=== PATIENT | female | born 1970 | race African-American/Black ===

== ENCOUNTER 2017-01-31 13:39 | Emergency (ER) | payer MEDICAID ==
[~2017-01-31] VITALS: Ht 157.5 cm; Wt 71.7 kg
[~2017-01-31 13:39] MED LIST: ACYCLOVIR200 MG ORAL; BENADRYL25 MG ORAL; IBUPROFEN600 MG ORAL; KENALOG 0.1% CR15 GM APPLIC; NORCO1 EA ORAL; PERCOCET 5-3251 EACH ORAL; PREDNISONE20 MG ORAL; TAMIFLU75 MG ORAL; VALACYCLOVIR500 MG ORAL
[2017-01-31] MEDS ORDERED: NKM (13:57)
[2017-01-31 14:00] VITALS: BP 128/83
[2017-01-31] MEDS ORDERED: PredniSONE 20mg tab ORAL ONE (14:15)
[2017-01-31] MEDS ORDERED: BENADRYL25 MG ORAL (14:16)
[2017-01-31] MEDS ORDERED: PREDNISONE20 MG ORAL (14:16)
[2017-01-31] MEDS ORDERED: KENALOG 0.1% LO60 ML APPLIC (14:16)
[2017-01-31 14:30] VITALS: BP 128/83
--- NOTE | 2017-01-31 14:58 | Emergency Room Report ---
History of Present Illness General Chief Complaint: Allergic Reaction Source: Patient Present Illness [facility] The patient is a 46-year-old female presenting for possible allergic reaction. The patient states that she used a haircoloring product yesterday and noticed an itching and burning sensation to the scalp. She admits to a previous history of allergic reaction to a similar product. She states that she thoroughly washed the hair and scalp multiple times but the symptoms persisted. She denies a rash or itching anywhere else on the body. She denies shortness of breath. She denies other symptoms including fever, chills, nausea, vomiting , headache, dizziness Allergies: Coded Allergies: PENICILLINS (Verified Allergy, Severe, Anaphylaxis, 01/02/13) Patient History Past Medical History: see triage record Pertinent Family History: none Last Menstrual Period: 6-6 Now: No Reviewed Nursing Documentation: PMH: Agreed, PSxH: Agreed Nursing Documentation-PMH Past Medical History: No History, Except For Hx Asthma: Yes Hx Cancer: No - Shingles Review of Systems All Other Systems: negative except mentioned in HPI Physical Exam Vital Signs Date Time Temp Pulse Resp B/P Pulse Ox O2 Delivery O2 Flow Rate FiO2 01/31/17 13:50 98.4 109 18 128/83 98 Room Air Sp02 EP Interpretation: reviewed, normal General Appearance: no apparent distress, alert, GCS 15, non-toxic Head: normocephalic, atraumatic Eyes: bilateral eye PERRL, bilateral eye normal inspection ENT: hearing grossly normal, normal pharynx, no angioedema, normal voice Neck: full range of motion, supple/symm/no masses Respiratory: chest non-tender, lungs clear, normal breath sounds, no wheezing, speaking full sentences Cardiovascular #1: normal inspection, no edema Gastrointestinal: normal bowel sounds, non tender, soft, non-distended, no guarding, no rebound Musculoskeletal: back normal, gait/station normal, normal range of motion, non- tender Neurologic: alert, oriented x3, responsive, motor strength/tone normal, sensory intact, speech normal Psychiatric: judgement/insight normal, memory normal, mood/affect normal, no suicidal/homicidal ideation Skin: normal color, no rash, warm/dry, well hydrated, normal turgor Lymphatic: no adenopathy Medical Decision Making PA Attestation Dr. dickens is my supervising physician. Patient management was discussed with my supervising physician Diagnostic Impression: Primary Impression: Contact dermatitis Qualified Codes: L25.9 - Unspecified contact dermatitis, unspecified cause ER Course The patient is a 46-year-old female presenting for possible allergic reaction Ddx considered include but not limited to insect bite, contact dermatitis, eczema, cellulitis, among others PE: afebrile. NAD Scalp: No erythema or edema. No excoriation brantley. Warm and dry Otherwise skin of the body is unremarkable. No hives or wheals. Lungs are clear to auscultation bilaterally Oropharynx is clear and patent The patient is given prednisone in the emergency department and will be discharged home with a prescription for prednisone, Benadryl, and triamcinolone. She will not use that product anymore and will followup with primary doctor. ER precautions given Last Vital Signs Date Time Temp Pulse Resp B/P Pulse Ox O2 Delivery O2 Flow Rate FiO2 01/31/17 14:30 98.4 18 128/83 98 Room Air 01/31/17 13:50 109 Status: improved Disposition: HOME, SELF-CARE Condition: Improved Scripts Prednisone* (PREDNISONE*) 20 Mg Tablet 40 MG ORAL DAILY, #10 TAB Prov: LIZ MAYORGA.A. 01/31/17 Triamcinolone Acet (Triamcinolone Acetonide) 60 Ml Lotion 1 APPLIC APPLIC TID, #60 ML Prov: LIZ MAYORGA P.A. 01/31/17 Diphenhydramine Hcl* (BENADRYL*) 25 Mg Capsule 25 MG ORAL Q6H Y for Itching, #15 CAP Prov: LIZ MAYORGA.A. 01/31/17 [facility]errals[facility] (PCP) Patient Instructions: Pruritus Additional Instructions: I discussed my findings with the patient. All questions and concerns have been answered. Treatment and medication compliance have been addressed. I advised the patient that they need to follow up with PMD in 3-5 days. Return to ED if symptoms worsen, new symptoms arise, or if needed for any reason. Patient verbalized understanding of discharge instructions. LIZ MAYORGA Jan 31, 2017 14:58
== END 2017-01-31 14:33 | disposition home or self-care (01) ==
LOC: EMR 14:12
DX: L25.9 Unspecified contact dermatitis, unspecified cause (principal); J45.909 Unspecified asthma, uncomplicated; Z88.0 Allergy status to penicillin
CPT/HCPCS: 99284

== ENCOUNTER 2017-09-05 13:42 | Emergency (ER) | payer MEDICAID ==
[~2017-09-05] VITALS: Ht 157.5 cm; Wt 67.6 kg
[~2017-09-05 13:42] MED LIST changes: +ACYCLOVIR MISC; +KENALOG 0.1% LO60 ML APPLIC; +NKM
[2017-09-05 14:15] VITALS: BP 0/0
[2017-09-05] MEDS ORDERED: BENADRYL ITCH28.3 G1 TP (14:23)
[2017-09-05] MEDS ORDERED: BENADRYL25 MG ORAL (14:23)
[2017-09-05] MEDS ORDERED: PREDNISONE20 MG ORAL (14:23)
--- NOTE | 2017-09-05 16:43 | Emergency Room Report ---
History of Present Illness General Chief Complaint: Female Urogenital Problems Source: Patient Present Illness HPI Patient here being seen with her daughter who is here for a different complaint Patient complains of vaginal itching on the outside reports that she is a new soap It was lavender fragrant and symmetric using that she felt increased itching denies any redness or discharge denies any vaginal discomfort denies any dysuria frequency Allergies: Coded Allergies: PENICILLINS (Verified Allergy, Severe, Anaphylaxis, 01/02/13) Patient History Past Medical History: see triage record Pertinent Family History: none Reviewed Nursing Documentation: PMH: Agreed, PSxH: Agreed Nursing Documentation-PM Past Medical History: No History, Except For Hx Asthma: Yes Hx Cancer: No - Shingles Review of Systems All Other Systems: negative except mentioned in HPI Physical Exam Vital Signs Date Time Temp Pulse Resp B/P (MAP) Pulse Ox O2 Delivery O2 Flow Rate FiO2 09/05/17 14:07 98.1 71 16 126/75 97 Room Air Sp02 EP Interpretation: reviewed, normal General Appearance: well appearing, no apparent distress Head: normocephalic, atraumatic Eyes: bilateral eye PERRL, bilateral eye EOMI ENT: hearing grossly normal, normal pharynx Neck: supple Respiratory: lungs clear Cardiovascular #1: regular rate, rhythm Gastrointestinal: non tender, soft Genitourinary: no CVA tenderness Musculoskeletal: normal inspection Neurologic: alert, oriented x3, responsive Skin: normal inspection Lymphatic: no adenopathy Medical Decision Making Diagnostic Impression: Primary Impression: contact dermatitis ER Course Vaginal examination was not performed Patient clinically reports no obvious erythema no vaginal discharge she mainly complains of the itching sensation She will be treated conservatively clinically and requires close followup Last Vital Signs Date Time Temp Pulse Resp B/P (MAP) Pulse Ox O2 Delivery O2 Flow Rate FiO2 09/05/17 14:15 0/0 09/05/17 14:15 98.1 16 97 Room Air 09/05/17 14:07 71 Status: unchanged Disposition: HOME, SELF-CARE Condition: Stable Scripts Diphenhydramine Hcl* (BENADRYL*) 25 Mg Capsule 25 MG ORAL Q6H Y for Itching, #20 CAP Prov: PEÑA HAINES D.O. 09/05/17 Prednisone* (PREDNISONE*) 20 Mg Tablet 20 MG ORAL BID, #8 TAB Prov: PEÑA HAINES D.O. 09/05/17 Diphenhydramine Hcl/Zinc Acet (BENADRYL ITCH STOPPING CRM) 28.3 Gm Cream..g. 5 GM TP BID for 5 Days, GM Prov: PEÑA HAINES D.O. 09/05/17 Referrals: [facility] ([facility]P) Patient Instructions: Contact Dermatitis, [id number] Additional Instructions: Patient is provided with the discharge instructions notified to follow up with primary doctor in the next 2-3 days otherwise return to the er with any worsening symptoms. Please note that this report is being documented using [employer] technology. This can lead to erroneous entry secondary to incorrect interpretation by the dictating instrument. PEÑA HAINES D.O. Sep 05, 2017 16:43
== END 2017-09-05 15:19 | disposition home or self-care (01) ==
LOC: EMR 14:55
DX: L25.9 Unspecified contact dermatitis, unspecified cause (principal); J45.909 Unspecified asthma, uncomplicated; Z88.0 Allergy status to penicillin
CPT/HCPCS: 99283

== ENCOUNTER 2018-01-06 15:44 | Emergency (ER) | payer SELFPAY ==
[~2018-01-06] VITALS: Ht 157.5 cm; Wt 65.8 kg
[~2018-01-06 15:44] MED LIST changes: +BENADRYL ITCH28.3 G1 TP
[2018-01-06] MEDS ORDERED: Acetaminophen 500mg (ES) tab ORAL ONE (16:15)
[2018-01-06] MEDS ORDERED: TYLENOL EXTRA500 MG ORAL (16:18)
--- NOTE | 2018-01-06 16:18 | Emergency Room Report ---
History of Present Illness General Chief Complaint: General Complaint Source: Patient Present Illness HPI 47-year-old female patient presents ER complaining of right heel pain for the past 2 weeks. Patient denies acute injury. Patient reports that pain is slowly been increasing during that time, states pain is worse in the morning. Denies wearing orthotics. Denies pain radiating of leg. Reports walking with limp. Denies other acute symptoms. Denies fever, chest pain, shortness of breath. patient denies stepping on a nail. Allergies: Coded Allergies: PENICILLINS (Verified Allergy, Severe, Anaphylaxis, 01/02/13) Patient History Past Medical History: see triage record Last Menstrual Period: 11/18/2017 Reviewed Nursing Documentation: PMH: Agreed; PSxH: Agreed Nursing Documentation-PMH Past Medical History: No History, Except For Hx Asthma: Yes Hx Cancer: No - Shingles Review of Systems All Other Systems: negative except mentioned in HPI Physical Exam Vital Signs Date Time Temp Pulse Resp B/P (MAP) Pulse Ox O2 Delivery O2 Flow Rate FiO2 01/06/18 15:55 98.4 80 18 124/83 98 Room Air 98.4 Sp02 EP Interpretation: reviewed, normal General Appearance: well appearing, no apparent distress, alert, GCS 15, non- toxic Head: normocephalic, atraumatic Eyes: bilateral eye normal inspection, bilateral eye PERRL ENT: hearing grossly normal, normal pharynx, no angioedema, normal voice, uvula midline, moist mucus membranes Respiratory: lungs clear, normal breath sounds, no rhonchi, no respiratory distress, no accessory muscle use, no wheezing, speaking full sentences Cardiovascular #1: regular rate, rhythm, no edema Cardiovascular #2: 2+ dorsalis pedis (R), 2+ dorsalis pedis (L) Musculoskeletal: back normal, digits/nails normal, normal range of motion, other - NVI, tender - plantar aspect of right heel, no bruising, no erythema, no puncture wound Neurologic: alert, oriented x3, responsive, motor strength/tone normal, sensory intact Skin: no rash Medical Decision Making PA Attestation Dr. Kerr is my supervising Physician whom patient management has been discussed with. Diagnostic Impression: Primary Impression: Heel pain ER Course Pt. presents to the ED c/o and right heel pain Ddx considered but are not limited to fracture, sprain, strain, contusion, dislocation, plantar fasciitis, heel spurs. Vital signs: are WNL, pt. is afebrile Ordered X-ray and pain medication. ER COURSE Provided with pain medication. An X-ray of the right foot was ordered, results show no acute fracture, no heel spurs, per the preliminary reading. informed patient possible plantar fasciitis, perform stretching exercises, take NSAIDs for pain, her shoes with better arch support. Reports pain symptoms improved. postop shoe was applied to right foot and was checked afterwards by me showing good alignment and support with distal neurovascular functioning intact. Patient reports walking with a limp, we will provide crutches. Patient instructed on RICE method: rest, ice, compression, elevation. Patient instructed to WBAT. Followup with primary care provider, request referral to ortho or podiatry as needed Discuss referral to ortho/pain management/PT as needed. Discuss further imaging with MRI/CT as needed. DISCHARGE: -Rx provided for Tylenol for pain symptoms. At this time pt. is stable for d/c to home. Patient is resting comfortably, in no acute distress, nontoxic appearing, talking without difficulty. Will provide printed patient care instructions, and any necessary prescriptions. Patient instructed to follow with primary care provider in 3 - 5 days and to request further orthopedic follow-up. Care plan and follow up instructions have been discussed with the patient prior to discharge. Take medications as directed. Patient questions asked and answered. Patient reports understanding and agreement to treatment plan. ER precautions given, patient instructed to return to ER immediately for any new or worsening of symptoms. - Please note that this Emergency Department Report was dictated using [employer] condition[employer] supervisor technology software, occasionally this can lead to erroneous entry secondary to interpretation by the dictation equipment. Other X-Ray Diagnostic Results Other X-Ray Diagnostic Results : X-Ray ordered: right foot # of Views/Limited Vs Complete: 3 View Indication: Pain EP Interpretation: Yes PA Xray: Interpretation reviewed, by supervising MD, and agrees with findings. Interpretation: no dislocation, no soft tissue swelling, no fractures Impression: No acute disease PEARL Scribe Text Junior Ball PA-C Last Vital Signs Date Time Temp Pulse Resp B/P (MAP) Pulse Ox O2 Delivery O2 Flow Rate FiO2 01/06/18 15:55 98.4 80 18 124/83 98 Room Air 98.4 Disposition: HOME, SELF-CARE Condition: Stable Scripts Acetaminophen* (TYLENOL EXTRA STRENGTH*) 500 Mg Tablet 500 MG ORAL Q8H PRN for Prn Headache/Temp > 101, #30 TAB 0 Refills Prov: Dillon Ball 01/06/18 Patient Instructions: Plantar Fasciitis Additional Instructions: Patient instructed to follow up with primary care provider and discuss further referral to orthopedics. Discuss referral to podiatry at that time. Perform stretching exercises, get orthotics for her shoes. Patient instructed on RICE method: rest, ice, compression, elevation. Patient instructed to WBAT. Take medications as directed. Patient questions asked and answered. ER precautions given, patient instructed to return to ER immediately for any new or worsening of symptoms. Dillon Ball January 06, 2018 16:18
[2018-01-06 17:35] VITALS: BP 111/71
--- NOTE | 2018-01-06 18:08 | Diagnostic Imaging Report ---
EXAM: XR Right Foot Complete, 3 or More Views CLINICAL HISTORY: PAIN TECHNIQUE: Frontal, lateral and oblique views of the right foot. COMPARISON: No relevant prior studies available. FINDINGS: Bones/joints: No acute displaced fracture or dislocation. Soft tissues: Unremarkable. No radiopaque foreign body. IMPRESSION: No acute displaced fracture or dislocation.
== END 2018-01-06 17:38 | disposition home or self-care (01) ==
LOC: EMR 16:20
DX: M79.671 Pain in right foot (principal); J45.909 Unspecified asthma, uncomplicated
CPT/HCPCS: 99283

== ENCOUNTER 2019-05-02 16:54 | Emergency (ER) | payer MEDICAID ==
[~2019-05-02] VITALS: Ht 157.5 cm; Wt 65.8 kg
[~2019-05-02 16:54] MED LIST changes: +TYLENOL EXTRA500 MG ORAL
[2019-05-02 17:00] VITALS: BP 131/87
--- NOTE | 2019-05-02 17:10 | NUR ---
ED Nurse Note: Pt walked in due to blood on her stools since last night. Per pt, she was constipated and she took a stool softener last night. Pt produced a soft bowel movement this morning with some blood on it,. Denies abd pain. AAO x4 and ambulatory.
[2019-05-02] MEDS ORDERED: Lidocaine HCl 2% Jelly 6ml Tube TOPIC ONE (17:30)
--- NOTE | 2019-05-02 17:30 | NUR ---
ED Nurse Note: Primary RN assisted Dr peña on rectal exam. Some blood noted and controllable.
[2019-05-02] MEDS ORDERED: ANECREAM515 GM TP (17:33)
[2019-05-02] MEDS ORDERED: COLACE100 MG ORAL (17:33)
[2019-05-02 17:49] VITALS: BP 128/80
--- NOTE | 2019-05-02 17:49 | NUR ---
ER DISCHARGE NOTE: Patient is cleared to be discharged per ERMD, pt is aox4, on room air, with stable vital signs. pt was given dc and prescription instructions, pt was able to verbalize understanding, pt id band removed . pt is able to ambulate with steady gait. pt took all belongings.
--- NOTE | 2019-05-02 21:10 | Emergency Room Report ---
History of Present Illness General Chief Complaint: Gastrointestinal Bleed Source: Medical Record Present Illness Allergies: Coded Allergies: PENICILLINS (Verified Allergy, Severe, Anaphylaxis, 01/02/13) Patient History Last Menstrual Period: 01/31 Nursing Documentation-[facility] Past Medical History: No History, Except For Hx Asthma: Yes Hx Cancer: No - Shingles Physical Exam Vital Signs Date Time Temp Pulse Resp B/P (MAP) Pulse Ox O2 Delivery O2 Flow Rate FiO2 05/02/19 17:00 98.2 97 16 131/87 (102) 98 Room Air Medical Decision Making Diagnostic Impression: Primary Impression: Rectal pain Last Vital Signs Date Time Temp Pulse Resp B/P (MAP) Pulse Ox O2 Delivery O2 Flow Rate FiO2 05/02/19 17:49 98.5 87 20 128/80 100 Room Air Disposition: HOME, SELF-CARE Condition: Stable Scripts Docusate Sodium* (COLACE*) 100 Mg Capsule 100 MG ORAL THREE TIMES A DAY, #30 CAP Prov: Norman Kerr MD 05/02/19 Lidocaine (ANECREAM5) 15 Gm Cream..g. 15 GM TP EVERY 8 HOURS, #15 GM Prov: Norman Kerr MD 05/02/19 Referrals: NON PHYSICIAN (PCP) Patient Instructions: How to Take a Sitz Bath Norman Kerr MD May 02, 2019 21:10
== END 2019-05-02 17:49 | disposition home or self-care (01) ==
LOC: EMR 17:38
DX: K62.89 Other specified diseases of anus and rectum (principal); J45.909 Unspecified asthma, uncomplicated; Z88.0 Allergy status to penicillin
CPT/HCPCS: 99283

== ENCOUNTER 2019-06-11 12:31 | Emergency (ER) | payer MEDICAID ==
[~2019-06-11] VITALS: Ht 157.5 cm; Wt 67.6 kg
[~2019-06-11 12:31] MED LIST changes: +ANECREAM515 GM TP; +COLACE100 MG ORAL
[2019-06-11 12:36] VITALS: BP 132/85
--- NOTE | 2019-06-11 13:01 | Emergency Room Report ---
History of Present Illness General Chief Complaint: Back Pain-No Injury Source: Medical Record Present Illness HPI 49-year-old female with no symptom past medical history here complaining of several months of low back pain radiating to lower leg. Denies any fall or injury however does report that she lifts heavy objects. Rating the pain 5 out of 10 without radiation. Has not seen her primary care in the past few months. Reports that she is suspecting may be sciatic pain however denies any tingling numbness. Denies pain worsening upon sitting and standing. Pain is localized to lumbar region describing it aching. Denies chest pain, shortness of breath, palpitation, past injury to the lower back, and other associated symptoms. Reports that [id number] ibuprofen has not been helping her. Patient has full range of motion. Denies urinary symptoms, and pain radiation to the pubic area. Allergies: Coded Allergies: PENICILLINS (Verified Allergy, Severe, Anaphylaxis, 01/02/13) Patient History Past Medical History: see triage record Past Surgical History: unable to obtain Pertinent Family History: none Last Menstrual Period: 01/31 Now: No Immunizations: UTD Reviewed Nursing Documentation: PMH: Agreed; PSxH: Agreed Nursing Documentation-PMH Past Medical History: No History, Except For Hx Asthma: Yes Hx Cancer: No - Shingles Review of Systems All Other Systems: negative except mentioned in HPI Physical Exam Vital Signs Date Time Temp Pulse Resp B/P (MAP) Pulse Ox O2 Delivery O2 Flow Rate FiO2 06/11/19 12:36 98.2 84 16 132/85 (101) 98 Room Air Sp02 EP Interpretation: reviewed, normal General Appearance: no apparent distress, alert, GCS 15, non-toxic Head: normocephalic, atraumatic Eyes: bilateral eye normal inspection, bilateral eye PERRL ENT: hearing grossly normal, normal pharynx, no angioedema, normal voice Neck: full range of motion, supple/symm/no masses Respiratory: chest non-tender, lungs clear, normal breath sounds, no rhonchi, no wheezing, speaking full sentences Cardiovascular #2: 2+ dorsalis pedis (R), 2+ dorsalis pedis (L) Gastrointestinal: normal bowel sounds, non tender, soft, non-distended, no guarding, no rebound Genitourinary: no CVA tenderness Musculoskeletal: back normal, gait/station normal, normal range of motion, non- tender, no calf tenderness, other - Negative straight leg test Neurologic: alert, oriented x3, responsive, motor strength/tone normal, sensory intact, speech normal Psychiatric: judgement/insight normal, memory normal, mood/affect normal, no suicidal/homicidal ideation Skin: no rash Lymphatic: no adenopathy Medical Decision Making PA Attestation All diagnoses and treatment plans were reviewed and discussed with my supervising physician Dr. Jalloh Diagnostic Impression: Primary Impression: Lumbosacral strain ER Course 49-year-old female with no symptom past medical history here complaining of several months of low back pain radiating to lower leg. Denies any fall or injury however does report that she lifts heavy objects. Rating the pain 5 out of 10 without radiation. Has not seen her primary care in the past few months. Reports that she is suspecting may be sciatic pain however denies any tingling numbness. Denies pain worsening upon sitting and standing. Pain is localized to lumbar region describing it aching. Denies chest pain, shortness of breath, palpitation, past injury to the lower back, and other associated symptoms. Reports that [id number] ibuprofen has not been helping her. Patient has full range of motion. Denies urinary symptoms, and pain radiation to the pubic right area. Ddx considered but are not limited to: Lumbar spine sprain, strain, fracture, contusion, neuropathy, sciatic pain Vital signs: are WNL, pt. is afebrile H&PE are most consistent with: Lumbosacral strain ORDERS: Lidocaine patch, Robaxin, ibuprofen 800 ER intervention: None DISCHARGE: At this time pt. is stable for d/c to home. Will provide printed patient care instructions, and any necessary prescriptions. Care plan and follow up instructions have been discussed with the patient prior to discharge. Patient to follow-up with primary care provider for physical therapy and further assessment and possible process control specialist.. Patient agrees with the above treatment. No imaging is needed as patient did not fall or injure herself and this is chronic pain Last Vital Signs Date Time Temp Pulse Resp B/P (MAP) Pulse Ox O2 Delivery O2 Flow Rate FiO2 06/11/19 12:36 98.2 84 16 132/85 (101) 98 Room Air Disposition: HOME, SELF-CARE Condition: Stable Scripts Lidocaine Patch* (Lidoderm Patch*) 1 Each Adh..patch 1 PATCH TOPIC DAILY, #7 PATCH 0 Refills Patch(es) may remain in place for up to 12 hours in any 24-hour period. Prov: Avril Ramirez 06/11/19 Methocarbamol* (ROBAXIN-500*) 500 Mg Tablet 500 MG ORAL TID PRN for For Pain, #15 TAB 0 Refills Prov: Avril Ramirez 06/11/19 Ibuprofen (Ibu) 800 Mg Tablet 800 MG PO TID, #30 TAB Prov: Avril Ramirez 06/11/19 Patient Instructions: Back Pain, Adult, Lumbosacral Strain Additional Instructions: Take medication as directed, no imaging is needed at this point as it was no fall or injury. Follow-up with your primary care provider if worsening symptoms essentially emergency room. I highly recommend that you ask your primary doctor for referral for physical therapy. Avril Ramirez Jun 11, 2019 13:01
[2019-06-11] MEDS ORDERED: IBU800 MG PO (13:02)
[2019-06-11] MEDS ORDERED: ROBAXIN-500MG ORAL (13:02)
[2019-06-11] MEDS ORDERED: LIDODERM700 M1 TOPIC (13:02)
--- NOTE | 2019-06-11 13:10 | NUR ---
ER DISCHARGE NOTE: Patient is cleared to be discharged per ERMD, pt is aox4, on room air, with stable vital signs. pt was given dc and prescription instructions, pt was able to verbalize understanding, pt is able to ambulate with steady gait. pt took all belongings.
[2019-06-11 13:17] VITALS: BP 132/85
== END 2019-06-11 13:20 | disposition home or self-care (01) ==
LOC: EMR 13:00
DX: S39.012A Strain of muscle, fascia and tendon of lower back, initial encounter (principal); J45.909 Unspecified asthma, uncomplicated; Z88.0 Allergy status to penicillin; X50.0XXA Overexertion from strenuous movement or load, initial encounter; Y92.9 Unspecified place or not applicable
CPT/HCPCS: 99282

== ENCOUNTER 2020-06-23 04:35 | Emergency (ER) | payer MEDICAID ==
[~2020-06-23] VITALS: Ht 157.5 cm; Wt 68.0 kg
[~2020-06-23 04:35] MED LIST changes: +IBU800 MG PO; +LIDODERM700 M1 TOPIC; +ROBAXIN-500MG ORAL
--- NOTE | 2020-06-23 04:50 | NUR ---
ED Nurse Note: Patient walked into the ED from home with c/o , cough and congestion onset 06/20. Wheezes present, clear productive cough present per patient, denies fever and chills. Patient stated taking OTC such as inhaler but with no help. Patient has hx of childhood asthma but never had an episode since then. Pt satting at 99% on RA. Patient denies flu like s/sx, CP, N&V. Placed on monitor bed
--- NOTE | 2020-06-23 04:51 | NUR ---
ED Nurse Note: ERMD at bedside
[2020-06-23] MEDS ORDERED: Albuterol 90mcg Inhaler 8gm INH PRN (05:00)
--- NOTE | 2020-06-23 05:00 | NUR ---
ED Nurse Note: Rapid covid test done
--- NOTE | 2020-06-23 05:05 | NUR ---
ED Nurse Note: Proventil MDI inhaler not available in pyxis. ERMD notified. RT notified for breathing tx
[2020-06-23 05:14] VITALS: BP 135/86
[2020-06-23] MEDS ORDERED: Ipratropium 0.02% Inh Soln 2.5ml UD HHN ONE (05:15)
[2020-06-23] MEDS ORDERED: Albuterol ud Inhalation HHN ONE (05:15)
--- NOTE | 2020-06-23 05:16 | Emergency Room Report ---
History of Present Illness General Chief Complaint: Upper Respiratory Illness Source: Patient Present Illness HPI This is a 50-year-old female who had a history of asthma as a kid but outgrew it. She presents with chief complaint of wheezing and shortness of breath. Onset tonight. She thinks that her allergy is acting up. She has been sneezing and itchy eyes. She used her daughter's inhaler tonight and it helped some. No fever chills. No nausea no vomiting. Worse with inspiration. Better with rest. Has coughing is nonproductive in nature. Allergies: Coded Allergies: PENICILLINS (Verified Allergy, Severe, Anaphylaxis, 01/02/13) COVID-19 Screening Contact w/high risk pt: No Experienced COVID-19 symptoms?: Yes COVID-19 Testing performed DIRECTOR OF FINANCIAL REPORTING: No Patient History Past Medical History: see triage record, old chart reviewed, asthma Past Surgical History: none Pertinent Family History: none Social History: Denies: smoking Now: No Immunizations: other Reviewed Nursing Documentation: PMH: Agreed; PSxH: Agreed Nursing Documentation-PMH Hx Asthma: Yes Hx Cancer: No Review of Systems Eye: Denies: eye pain, blurred vision ENT: Denies: ear pain, nose congestion, throat swelling Respiratory: Reports: cough, shortness of breath, wheezing Cardiovascular: Denies: chest pain, palpitations Gastrointestinal: Denies: abdominal pain, diarrhea, nausea, vomiting Musculoskeletal: Denies: back pain, joint pain Skin: Denies: rash Neurological: Denies: headache, numbness Endocrine: Denies: increased thirst, increased urine Hematologic/Lymphatic: Denies: easy bruising All Other Systems: negative except mentioned in HPI Physical Exam Vital Signs Date Time Temp Pulse Resp B/P (MAP) Pulse Ox O2 Delivery O2 Flow Rate FiO2 06/23/20 04:38 98.8 105 16 143/84 (103) 97 Room Air Vitals unremarkable Sp02 EP Interpretation: reviewed, normal General Appearance: well appearing, no apparent distress, alert Head: normocephalic, atraumatic Eyes: bilateral eye PERRL, bilateral eye EOMI ENT: hearing grossly normal, normal pharynx Neck: full range of motion, supple, no meningismus Respiratory: chest non-tender, decreased breath sounds, accessory muscle use, wheezing Cardiovascular #1: regular rate, rhythm, no murmur Gastrointestinal: normal bowel sounds, non tender, no mass, no organomegaly, no bruit, non-distended Musculoskeletal: back normal, normal range of motion, gait/station normal Psychiatric: mood/affect normal Medical Decision Making Diagnostic Impression: Primary Impression: Upper respiratory symptom Additional Impression: Asthma exacerbation Qualified Codes: J45.21 - Mild intermittent asthma with (acute) exacerbation ER Course Patient with wheezing secondary to asthma exacerbation. This may be also from upper respiratory infection. Negative for Covid. Wheezing resolved after breathing treatment. Steroid given here. Will discharge home. I see no evidence of ACS, PE, pneumonia to name a few. Last Vital Signs Date Time Temp Pulse Resp B/P (MAP) Pulse Ox O2 Delivery O2 Flow Rate FiO2 06/23/20 04:38 98.8 105 16 143/84 (103) 97 Room Air Status: improved Disposition: HOME, SELF-CARE Condition: Stable Scripts Prednisone* (PREDNISONE*) 20 Mg Tablet 40 MG ORAL DAILY, #8 TAB Prov: Juan Mcgowan MD 06/23/20 Albuterol Sulfate* (Albuterol Sulfate Hfa*) 8.5 Gm Hfa.aer.ad 2 PUFF INH Q4H, #1 INH Prov: Juan Mcgowan MD 06/23/20 Referrals: [facility]ERR[facility] (PCP) Additional Instructions: Follow-up with In 7 days. Return if symptoms worsen. Juan Mcgowan MD Jun 23, 2020 05:16
[2020-06-23] MEDS ORDERED: ALBUTEROL SULF8.5 G1 INH (05:55)
[2020-06-23] MEDS ORDERED: PREDNISONE20 MG ORAL (05:55)
--- NOTE | 2020-06-23 05:57 | NUR ---
ED Nurse Note: Breathing tx done
--- NOTE | 2020-06-23 06:15 | NUR ---
ER DISCHARGE NOTE: Patient is cleared to be discharged per ERMD, pt is aox4, on room air, with stable vital signs. pt was given dc and prescription instructions, pt was able to verbalize understanding, pt id band removed. pt is able to ambulate with steady gait. pt took all belongings.
[2020-06-23 06:16] VITALS: BP 135/86
== END 2020-06-23 06:17 | disposition home or self-care (01) ==
LOC: EMR 04:58
DX: J45.21 Mild intermittent asthma with (acute) exacerbation (principal); Z88.0 Allergy status to penicillin
CPT/HCPCS: 94640; J7512; U0002; Z7502; 99284